=== PATIENT | female | born 1965 | race Caucasian/White ===

== ENCOUNTER 2016-12-01 00:13 | Emergency (ER) | payer OTHER ==
[2016-12-01 02:49] VITALS: BP 163/106
== END 2016-12-01 02:49 | disposition home or self-care (01) ==
LOC: ED 00:13
DX: F41.0 Panic disorder [episodic paroxysmal anxiety] (principal); I10 Essential (primary) hypertension; E66.9 Obesity, unspecified
CPT/HCPCS: 82962